=== PATIENT | male | born 1960 | race African-American/Black ===

== ENCOUNTER 2020-01-26 10:16 | Emergency (ER) | payer OTHER ==
[~2020-01-26] VITALS: Ht 177.8 cm; Wt 77.1 kg
--- NOTE | 2020-01-26 10:25 | NUR ---
ED Nurse Note: Pt arrived via ambulance because he jumped under ambulance truck. Pt is placed on hold upon arrival by [employer]. Pt is alert and orientedx4, but states he has auditory voices of his son and daughter, and hallucinations at nighttime. Pt denies SI at this time. Sitter at bedside. Safety precautions in place, pts belongings in locker.
--- NOTE | 2020-01-26 10:45 | NUR ---
ED Nurse Note: Pt belongings placed in locker #1.
[2020-01-26 11:01] LABS: APPEARANCE,URINE CLEAR; BILIRUBIN, URINE NEGATIVE (NEGATIVE); COLOR,URINE PALE YELLOW; GLUCOSE, URINE (UA) NEGATIVE (NEGATIVE); KETONES,URINE 2+ (NEGATIVE); LEUKOCYTE ESTERASE ,URINE NEGATIVE (NEGATIVE); NITRITE,URINE NEGATIVE (NEGATIVE); PH,URINE 6.5 (4.5-8.0); PROTEIN,URINE NEGATIVE (NEGATIVE); UROBILINOGEN,URINE NORMAL MG/DL (0.0-1.0)
[2020-01-26 11:11] LABS: BASOPHILS % (AUTO) 0.7 % (0.0-2.0); EOSINOPHILS % (AUTO) 1.3 % (0.0-3.0); HEMATOCRIT 40.3 % (42.0-52.0); HEMOGLOBIN 13.9 G/DL (14.2-18.0); MEAN CORPUSCULAR VOLUME 88 FL (80-99); MONOCYTES % (AUTO) 7.1 % (1.0-10.0); PLATELET COUNT 275 K/UL (150-450); RED BLOOD COUNT 4.57 M/UL (4.70-6.10); RED CELL DISTRIBUTION WIDTH 11.8 % (11.6-14.8); WHITE BLOOD COUNT 5.5 K/UL (4.8-10.8)
[2020-01-26 11:16] LABS: ANION GAP 10 mmol/L (5-15); BLOOD UREA NITROGEN 14 mg/dL (7-18); CALCIUM 8.4 MG/DL (8.5-10.1); CARBON DIOXIDE 28 MMOL/L (21-32); CHLORIDE 105 MMOL/L (98-107); POTASSIUM 3.7 MMOL/L (3.5-5.1); SODIUM 143 MMOL/L (136-145)
[2020-01-26 11:25] VITALS: BP 169/67
[2020-01-26 11:29] LABS: ALANINE AMINOTRANSFERASE 27 U/L (12-78); ALBUMIN 3.7 G/DL (3.4-5.0); ALBUMIN/GLOBULIN RATIO 1.1 (1.0-2.7); ALKALINE PHOSPHATASE 62 U/L (46-116); ASPARTATE AMINO TRANSFERASE 19 U/L (15-37); BILIRUBIN,TOTAL 0.9 MG/DL (0.2-1.0)
--- NOTE | 2020-01-26 12:41 | NUR ---
ED Nurse Note: Pt sitting in bed, relaxed. Pt denies SI. He states he hears auditory sounds.
--- NOTE | 2020-01-26 14:02 | NUR ---
ED Nurse Note: Pt sitting in bed, calm and cooperative. Pt denies SI. Safety measures in place.
--- NOTE | 2020-01-26 14:25 | Emergency Room Report ---
History of Present Illness General Chief Complaint: Behavioral Complaint Source: Patient (Carina Dempsey DO) Present Illness HPI This patient is brought in by EMS. He states he is having trouble with his relationship with his son. He is homeless. He states he feels suicidal. EMS states that he dove underneath the ambulance on their arrival. He was behaving bizarrely. He states he does feel suicidal. (Carina Dempsey DO) Allergies: Coded Allergies: No Known Allergies (Unverified , 01/26/20) COVID-19 Screening Contact w/high risk pt: No Recent Travel to affected area: No Experienced COVID-19 symptoms?: No COVID-19 Testing performed REMOTE SENSING ADVISOR: No (Carina Dempsey DO) Patient History Past Medical History: none Social History: Reports: smoking, alcohol use, drug use Reviewed Nursing Documentation: PMH: Agreed; PSxH: Agreed (Carina Dempsey DO) Nursing Documentation-PMH Past Medical History: Deferred (Carina Dempsey DO) Review of Systems All Other Systems: negative except mentioned in HPI (Carina Dempsey DO) Physical Exam Vital Signs Date Time Temp Pulse Resp B/P (MAP) Pulse Ox O2 Delivery O2 Flow Rate FiO2 01/26/20 10:08 98.8 88 16 176/68 (104) 99 Room Air 01/26/20 11:25 100 Sp02 EP Interpretation: reviewed, normal General Appearance: no apparent distress, alert, GCS 15, non-toxic Head: normocephalic, atraumatic Eyes: bilateral eye normal inspection, bilateral eye PERRL ENT: hearing grossly normal, normal pharynx, no angioedema, normal voice Neck: full range of motion, supple/symm/no masses Respiratory: chest non-tender, lungs clear, normal breath sounds, no respiratory distress, no retraction, no accessory muscle use, speaking full sentences Cardiovascular #1: regular rate, rhythm, no edema Gastrointestinal: normal bowel sounds, non tender, soft, non-distended, no guarding, no rebound Rectal: deferred Musculoskeletal: back normal, normal range of motion, gait/station normal, non- tender Neurologic: alert, motor strength/tone normal, oriented x3, sensory intact, responsive, speech normal Psychiatric: judgement/insight normal, memory normal, depressed affect Skin: normal color (Carina Dempsey DO) Medical Decision Making Diagnostic Impression: Primary Impression: Suicidal ideations ER Course This patient reports suicidal ideation. The patient was calm and cooperative while under my care. He is medically cleared for psychiatric placement. The patient is awaiting acceptance to a psychiatric facility. Laboratory Tests Test 01/26/20 10:30 01/26/20 10:40 White Blood Count 5.5 K/UL (4.8-10.8) Red Blood Count 4.57 M/UL (4.70-6.10) L Hemoglobin 13.9 G/DL (14.2-18.0) L Hematocrit 40.3 % (42.0-52.0) L Mean Corpuscular Volume 88 FL (80-99) Mean Corpuscular Hemoglobin 30.4 PG (27.0-31.0) Mean Corpuscular Hemoglobin Concent 34.4 G/DL (32.0-36.0) Red Cell Distribution Width 11.8 % (11.6-14.8) Platelet Count 275 K/UL (150-450) Mean Platelet Volume 7.5 FL (6.5-10.1) Neutrophils (%) (Auto) 60.0 % (45.0-75.0) Lymphocytes (%) (Auto) 31.0 % (20.0-45.0) Monocytes (%) (Auto) 7.1 % (1.0-10.0) Eosinophils (%) (Auto) 1.3 % (0.0-3.0) Basophils (%) (Auto) 0.7 % (0.0-2.0) Sodium Level 143 MMOL/L (136-145) Potassium Level 3.7 MMOL/L (3.5-5.1) Chloride Level 105 MMOL/L (98-107) Carbon Dioxide Level 28 MMOL/L (21-32) Anion Gap 10 mmol/L (5-15) Blood Urea Nitrogen 14 mg/dL (7-18) Creatinine 1.0 MG/DL (0.55-1.30) Estimated Glomerular Filtration Rate > 60 mL/min (>60) Glucose Level 101 MG/DL (74-106) Calcium Level 8.4 MG/DL (8.5-10.1) L Total Bilirubin 0.9 MG/DL (0.2-1.0) Aspartate Amino Transferase (AST) 19 U/L (15-37) Alanine Aminotransferase (ALT) 27 U/L (12-78) Alkaline Phosphatase 62 U/L (46-116) Total Protein 7.1 G/DL (6.4-8.2) Albumin 3.7 G/DL (3.4-5.0) Globulin 3.4 g/dL Albumin/Globulin Ratio 1.1 (1.0-2.7) Thyroid Stimulating Hormone (TSH) 0.492 uiU/mL (0.358-3.740) Salicylates Level 1.2 ug/mL (2.8-20) L Acetaminophen Level < 2 MCG/ML (10-30) L Serum Alcohol < 3 mg/dL Urine Color Pale yellow Urine Appearance Clear Urine pH 6.5 (4.5-8.0) Urine Specific Cuthbert 1.015 (1.005-1.035) Urine Protein Negative (NEGATIVE) Urine Glucose (UA) Negative (NEGATIVE) Urine Ketones 2+ (NEGATIVE) H Urine Blood Negative (NEGATIVE) Urine Nitrite Negative (NEGATIVE) Urine Bilirubin Negative (NEGATIVE) Urine Urobilinogen Normal MG/DL (0.0-1.0) Urine Leukocyte Esterase Negative (NEGATIVE) Urine Opiates Screen Negative (NEGATIVE) Urine Barbiturates Screen Negative (NEGATIVE) Phencyclidine (PCP) Screen Negative (NEGATIVE) Urine Amphetamines Screen Positive (NEGATIVE) H Urine Benzodiazepines Screen Negative (NEGATIVE) Urine Cocaine Screen Positive (NEGATIVE) H Urine Marijuana (THC) Screen Negative (NEGATIVE) (Carina Dempsey DO) ER Course Patient signed out to me pending psychiatric placement. Briefly, this is a 59-year-old male who was placed on 5150 by [employer] for suicidal behavior. Labs have returned within normal limits. He has tested positive for cocaine and benzodiazepines. He is calm and cooperative at this time. Reporting suicidality. Will arrange transfer to psychiatric facility. (Panchito Mckenzie MD) Last Vital Signs Date Time Temp Pulse Resp B/P (MAP) Pulse Ox O2 Delivery O2 Flow Rate FiO2 01/26/20 11:25 82 18 Room Air 100 01/26/20 11:25 98.8 169/67 98 Status: improved (Carina Dempsey DO) Disposition: SHORT-TERM HOSP Condition: Stable Referrals: [facility],REFERR[facility] (PCP) Carina Dempsey DO January 26, 2020 14:25 Panchito Mckenzie MD January 26, 2020 14:57
[2020-01-26 14:55] VITALS: BP 162/65
--- NOTE | 2020-01-26 16:38 | NUR ---
ED Nurse Note: Pt wakes up ocassionally and tries to climb out of bed, but is told to remain, and he goes back to bed. Pt is calm and cooperative. Sitter at bedside.
--- NOTE | 2020-01-26 17:49 | NUR ---
ED Nurse Note: Pt is lying in bed. Sitter at bedside. Pt is calm and cooperative.
[2020-01-26 17:51] VITALS: BP 157/61
--- NOTE | 2020-01-26 18:14 | NUR ---
ED Nurse Note: Sitter notified RN that pt jumped out of bed and hit elbow on bed and has skin tear with scant blood. Dr Mckenzie states just to cover with gauze and tape.
--- NOTE | 2020-01-26 19:30 | NUR ---
ED Nurse Note: Recieved report from am nurse to resume care, pt in bed awake and alert, pt has sitter at bedside and on 5150 suicidal precautions, pt speaks bizzarily and does not appropriately answer questions, pt is currently calm and resting in bed, will resume care as ordered as pt waits for psych placement.
--- NOTE | 2020-01-26 22:00 | NUR ---
ED Nurse Note: PT CONTINUES TO REST IN BED QUIETLY, APPEARS TO BE SLEEPING, NO SOB OR LABORED BREATHING, SITTER REMAINS AT BEDSIDE AND PT ON 5150 PRECAUTIOJNS, NO ATTEMPTS OR CHANGES MADE, FOOD, FLUIDS AND TOILETING OFFERED FREQUENTLY, PT CONTINUES TO CALMLY REST AT THIS TIME, WILL CONTINUE TO CLOSELY MONITOR.
[2020-01-27] VITALS: BP 144/73
--- NOTE | 2020-01-27 00:32 | NUR ---
[facility]-No beds at [facility] time
--- NOTE | 2020-01-27 00:35 | NUR ---
[facility]-no beds at this time, may be in the AM-faxed information(to Madelyn)
--- NOTE | 2020-01-27 00:43 | NUR ---
[facility]- no beds available this time
--- NOTE | 2020-01-27 00:45 | NUR ---
[facility] for tonight.
--- NOTE | 2020-01-27 00:46 | NUR ---
[facility]
--- NOTE | 2020-01-27 00:48 | NUR ---
[facility] [place].
--- NOTE | 2020-01-27 00:50 | NUR ---
[facility]-no beds at this time-hold,dictation and face sheet faxed as requested to [phone]
--- NOTE | 2020-01-27 01:00 | NUR ---
ED Nurse Note: Pt continues to sleep, sitter at bedside, remains on suicidal precautions and 5150 hold, pt awakens easily to verbal stimuli, no acute changes, distress or attempts noted, will continue to closely monitor.
--- NOTE | 2020-01-27 03:30 | NUR ---
ED Nurse Note: Pt sleeping, no changes, sob or labored breathing, sitter remains at bedside, pt has medical clearance and placement granted to [facility] in [place], pt to go at 930 am, will continue to closely monitor and have pt prepared for transfer.
--- NOTE | 2020-01-27 03:45 | NUR ---
Manuelito called with bed assignment: Patient to go to [facility] [email or web address] [place] [address] Rivas Call report [phone] Manuelito asked to send patient around 09:30(next shift) ETA-09:30-[facility] -spoke with Joy
[2020-01-27 04:00] VITALS: BP 135/64
--- NOTE | 2020-01-27 08:00 | NUR ---
ED Nurse Note:pt. is sleeping, no signs of distress noted breakfast provided, sitter in the room
[2020-01-27 08:28] VITALS: BP 133/66
--- NOTE | 2020-01-27 09:19 | NUR ---
ED Nurse Note:called report to psych hospital -given to Clementina quigley
[2020-01-27 10:15] VITALS: BP 133/66
--- NOTE | 2020-01-27 10:15 | NUR ---
ER DISCHARGE NOTE: Patient is cleared to be discharged per ERMD, pt is aox4, on room air, with stable vital signs. discharge packet was given to transporter, pt id band and iv site removed without complications. pt is able to ambulate with steady gait. pt took all belongings, left via ambulance
== END 2020-01-27 10:20 | disposition short-term general hospital (02) ==
LOC: EDBD 10:16 → EMR 10:51
DX: R45.851 Suicidal ideations (principal); Z59.0 Homelessness; F17.200 Nicotine dependence, unspecified, uncomplicated
CPT/HCPCS: 36415; 80053; 80307; 81003; 84443; 85025; 96360; 99285; G0480